=== PATIENT | male | born 2000 | race Asian ===

== ENCOUNTER 2025-08-22 11:28 | Emergency (ER) | payer SELFPAY ==
--- NOTE | 2025-08-22 12:02 | XR_ITS ---
EXAMINATION: XR knee LT 3V ORDERING PROVIDER: Moshe Jara NP HISTORY: Pain after patellar dislocation relocation TECHNIQUE: 3 radiographs of the left knee were obtained. COMPARISON: 11/23/2023 knee radiographs. FINDINGS: No acute fracture or dislocation. Alignment anatomic. No radiopaque foreign object. No significant soft tissue swelling. Mild irregularity of the medial femoral condyle, which may represent sequela of prior dislocation. IMPRESSION: No acute fracture or dislocation.
--- NOTE | 2025-08-22 12:03 | PD.EDADULT ---
ED General RME/HPI General Chief complaint: Extremity Injury, Lower Stated complaint: LEFT PATELLA DISLOCATION Time Seen by Provider: 08/22/25 12:01 Arrival date/time: 08/22/25 11:28 CC: Left knee pain HPI patient was throwing a ball when he noticed that his patella popped out to the outside . Patient stated immediately popped back in . Patient now has pain to the knee and has difficulty walking secondary to the pain patient denies any numbness or tingling in the foot lower extremity he does have full range of motion of the lower extremity. No OTC medicines taken. Onset was approximately 45 minutes ago. Related Data Home Medications ?Medication ?Instructions ?Recorded ?Confirmed No Known Home Medications 11/06/23 02/09/24 Allergies Allergy/AdvReac Type Severity Reaction Status Date / Time No Known Allergies Allergy Verified 11/06/23 09:16 Review of Systems Review of Systems Narrative Review of Systems: GEN: No fever, no chills, no weight loss EYES: No discharge, no visual changes, no pain HEENT: No ear pain, no congestion, no sore throat PULM: No shortness of breath, no cough, no congestion CV: No chest pain, no dyspnea on exertion, no palpitations GI: No nausea, no vomiting, no diarrhea, no pain, no constipation : No frequency, no urgency, no dysuria MUSC/SKEL: + joint pain, no back pain SKIN: No rash PSYCH: No hallucinations, no depression HEME/LYMPH: No easy bleeding or bruising tendencies NEURO: No weakness, no headache Past Medical History Social History SMOKING STATUS: Never smoker ED Exam Narrative Physical exam: [General: Obese not in in acute distress Head normocephalic HEENT: Within acceptable limits Neck is supple nontender Chest equal chest rise nontender to palpation Respiratory: Clear to auscultation no wheezes crackles or rubs CV: Rate rhythm is regular no murmurs rubs or clicks Abdomen is distended secondary to body habitus soft nontender no masses positive bowel sounds all 4 quadrants Back: No CVA tenderness no spinous process tenderness from cervical spine thoracic and lumbar spine Skin: Intact no petechiae rash induration ulceration or crepitus Extremities: Right knee. Decreased range of motion secondary to pain there is tenderness to palpation to the proximal patellar ligament. There is no gross abnormalities or malalignment. Patient has negative lateral laxity, negative anterior drawer. No posterior fossa pain with palpation no pain with palpation of the proximal tibia. Patella is nontender. Moving all other extremities against resistance cap refill less than 2 seconds neurosensory intact Neuro: Awake alert oriented x3 Glascow coma 15 no focal deficits] Course Quality Measures none Orders Category Date Time Status Miscellaneous Nursing Order NOW Care 08/22/25 13:10 Completed XR knee LT 3V Stat Exams 08/22/25 12:02 Completed Vital Signs Vital signs: Vital Signs Temperature 98.2 F 08/22/25 12:52 Pulse Rate 69 08/22/25 12:52 Respiratory Rate 16 08/22/25 12:52 Blood Pressure 124/81 08/22/25 12:52 Pulse Oximetry (%) 99 08/22/25 12:52 Oxygen Delivery Method Room Air 08/22/25 12:52 Discharge Plan Plan Patient Disposition: HOME (Self Care) Patient condition on transfer: Stable Prescriptions/Referrals Prescriptions/Med Rec: No Action No Known Home Medications Problem List Clinical Impression: Patellar dislocation Patient/Caregiver Discharge Instructions Other Activity Instructions:: Ibuprofen or Tylenol for pain. Wear the brace during the day. Avoid any heavy athletic activity for the next week. Follow-up with your primary care doctor if there is a worsening of symptoms return the emergency room for reevaluation. Education Materials: ED Patellar Dislocation/Subluxation Print Language: [place] Stand Alone Forms: Ruth Award Info., Work/School Release, Patient Portal Info Letter DERIAN/LEONID Supervising Physician DERIAN/LEONID Supervising Physician: Moshe Jara ENP [facility] Clinical Information Provided by: patient Medical Records reviewed [facility] Meds/Rx considered, not ordered None Labs/Rad/Tests considered, not ordered None Chronic Illness/Social Conditions which may negatively complicate care or outcome(s)-explain: None or not applicable EKG EKG not done Labs Labs: none Imaging Imaging interpretation: interpreted by md Imaging Interpretation(s): Knee x-ray is negative for any acute fracture malalignment or dislocation.
[2025-08-22 12:52] VITALS: BP 124/81; PULSE 69; RESP 16; TEMP 36.8; O2SAT 99
[2025-08-22 13:00] VITALS: BMI 33.3
== END 2025-08-22 13:57 | disposition home or self-care (01) ==
LOC: SERX 13:11
PROVIDERS: Emergency Provider Emergency Medicine
DX: S83.005A Unspecified dislocation of left patella, initial encounter (principal); X58.XXXA Exposure to other specified factors, initial encounter
CPT/HCPCS: 73562; 99282